=== PATIENT | male | born 1955 | race Caucasian/White ===

== ENCOUNTER 2018-04-06 07:11 | Inpatient (IN) ==
[2018-04-06] MEDS ORDERED: 0.9 % SODIUM CHLORIDE 1,000 ML IV ONE ×2 (07:19→09:26)
--- NOTE | 2018-04-06 08:04 | Emergency Department Note ---
Weakness HPI - General Chief complaint: Weakness Stated complaint: fever Time Seen by Provider: 04/06/18 08:01 Source: patient Mode of arrival: EMS Limitations: no limitations - History of Present Illness HPI Narrative: 62 year old male with history of CKD, COPD, CHF, and stage III CKD, living at intermediate brought in by caregiver with progressively worsening delerium, with visual hallucinations, previously able to speak in complete sentences and only mildly confused, redirectable, now with episodes of only able to speak yes/no responses. In ER today he is pleasant, alert, no oriented, complaining of dog on his lap. He endorses subjective fevers. Has had reported urinary incontinence and constipation with encopresis event yesterday. No other symptoms reportable. - Related Data Home Medications Medication Instructions Recorded Confirmed benztropine 0.5 mg tablet 0.5 mg PO BID 12/13/16 04/04/18 clonazepam 1 mg tablet See Rx Instructions .ROUTE 01/17/17 04/04/18 .COMPLEX tab clobetasol 0.05 % topical ointment 1 applic TOPICAL BID g 03/17/17 04/04/18 ciclopirox 0.77 % topical gel 1 applic TOPICAL BID 05/17/17 04/04/18 colloidal oatmeal 1 % topical cream % TOPICAL 05/17/17 04/04/18 desonide 0.05 % topical cream 1 applic TOPICAL BID 05/17/17 04/04/18 divalproex ER 500 mg 1,000 mg PO QDAY 05/17/17 04/04/18 tablet,extended release 24 hr amoxicillin 500 mg capsule 2 g PO .COMPLEX cap 10/23/17 04/04/18 topiramate 50 mg tablet See Rx Instructions .ROUTE .COMPLEX 10/23/17 04/04/18 venlafaxine ER 150 mg 150 mg PO QDAY cap 10/23/17 04/04/18 capsule,extended release 24 hr hydrocodone 5 mg-acetaminophen 325 1 tab PO Q6H PRN 04/04/18 04/04/18 mg tablet Previous Rx's Medication Instructions Recorded albuterol sulfate HFA 90 See Rx Instructions INHALATION 06/02/16 mcg/actuation aerosol inhaler .Q4-6H PRN #18 g Compression stockings (Knee high, #1 each 09/15/16 15-20 mmHg) Two-wheeled walker #1 each 12/27/16 olanzapine 7.5 mg tablet 7.5 mg PO QDAY #1 tab 03/17/17 blood sugar diagnostic strips See Dose Instructions .ROUTE 04/04/17 .MEDSUPPLY #100 each zinc oxide 13 % topical cream 1 applic TOPICAL BID-QID PRN #113 g 04/11/17 magnesium hydroxide 400 mg/5 mL 30 ml PO QDAY PRN #900 ml 05/30/17 oral suspension fluticasone 50 mcg/actuation nasal 2 spray INTRANASAL QDAY #16 g 08/01/17 spray,suspension cyanocobalamin (vit B-12) 500 mcg 500 mcg PO BID #60 tab 08/22/17 tablet carbidopa 25 mg-levodopa 100 mg 1 tab PO TID #1 tab 08/23/17 tablet acetaminophen ER 650 mg 650 mg PO Q8H PRN #90 tab 10/03/17 tablet,extended release sennosides 8.6 mg tablet 8.6 mg PO QDAY PRN #30 tab 10/11/17 budesonide-formoterol HFA 80 2 inh INHALATION BID #10.2 g 01/18/18 mcg-4.5 mcg/actuation aerosol inhaler diclofenac 1 % topical gel 4 g TOPICAL BID #100 g 01/18/18 loperamide 2 mg capsule 2 mg PO Q2-4H PRN #90 cap 01/18/18 neomycin-bacitracn Zn-polymyx 3.5 1 applic TOPICAL TID PRN #15 g 01/18/18 mg-400 unit-5,000 unit/gram top oint starch (thickening) oral powder 1 each PO .with meals #227 g 01/18/18 fexofenadine 60 mg tablet 60 mg PO QDAY #90 tab 01/26/18 sitagliptin 25 mg tablet 25 mg PO QDAY #30 tab 01/26/18 ferrous sulfate 325 mg (65 mg 325 mg PO QDAY #30 tab 03/01/18 iron) tablet lisinopril 2.5 mg tablet 2.5 mg PO QDAY #30 tab 03/01/18 simvastatin 20 mg tablet 20 mg PO HS #30 tab 03/01/18 trazodone 50 mg tablet 50 mg PO QHS #30 tab 03/01/18 cholecalciferol (vitamin D3) 1,000 1,000 unit PO QDAY #30 tab 03/16/18 unit tablet finasteride 5 mg tablet 5 mg PO QDAY #30 tab 03/16/18 furosemide 40 mg tablet 20 mg PO QDAY #15 tab 03/16/18 levothyroxine 100 mcg tablet 100 mcg PO QDAY #30 tab 03/16/18 omega-3 fatty acids 500 mg capsule 1,000 mg PO QDAY #60 cap 03/16/18 potassium chloride ER 10 mEq 10 meq PO QDAY #30 tab 03/16/18 tablet,extended release(part/cryst) ranitidine 150 mg tablet 150 mg PO BID #60 tab 03/16/18 ipratropium 20 mcg-albuterol 100 1 inh INHALATION QID #4 g 03/21/18 mcg/actuation mist for inhalation metoprolol tartrate 25 mg tablet 12.5 mg PO BID #60 tab 03/21/18 warfarin 5 mg tablet 7.5 mg PO .6XW #200 tab 03/23/18 Allergies Allergy/AdvReac Type Severity Reaction Status Date / Time No Known Drug Allergies Allergy Verified 04/04/18 14:44 Past Medical History - Past Medical History Medical history: Reports: asthma, CHF, COPD, coronary artery disease, DM, GERD, hyperlipidemia, hypertension, renal disease, thyroid disease, valvular heart disease, other Psychiatric history: Reports: depression, schizophrenia Surgical history ED: Reports: angioplasty/stent, coronary bypass (CABG), heart valve replacement, herniorrhaphy, orthopedic, other, pacemaker/AICD, other - Social History smoking status: Former smoker Alcohol use: Reports: None Drug use: Reports: none Physical Exam Limitations: no limitations Course Vital Signs Temperature 99.3 F H 04/06/18 07:12 Pulse Rate 89 04/06/18 07:12 Respiratory Rate 18 04/06/18 07:12 Blood Pressure 104/47 04/06/18 07:12 Pulse Oximetry (%) 96 04/06/18 07:12 Temperature 99.3 F H 04/06/18 07:12 Pulse Rate 69 04/06/18 08:30 Respiratory Rate 21 04/06/18 08:30 Blood Pressure 105/63 04/06/18 08:17 Pulse Oximetry (%) 97 04/06/18 08:30 Weakness - MDM Narrative Medical decision making narrative: Patient meeting SIRS criteria with leukocytosis, elevated venous lactic acid of 3.2 with WBC 11.8 with large leukocyte esterase. Blood cultures pending. Head CT w/o contrast negative, XR chest negative and Abdominal XR demonstrating moderate amounts of stool. Patient given 1g Rocephin IV, admitted to hospital for urosepsis. Discussed case with Dr. Alexander at 9:20am, agreed to admission. - Lab Data Lab results reviewed: Yes I reviewed the patient's lab results. Result diagrams: 04/06/18 07:24 04/06/18 07:24 Lab Results 04/06/18 04/06/18 04/06/18 Range/Units 07:24 07:24 07:24 WBC 11.7 H (4.5-11.0) K/mcL RBC 3.89 L (4.50-5.90) M/mcL Hgb 13.1 L (13.5-16.5) g/dL Hct 39.8 L (41.0-55.0) % MCV 102.1 H (80.0-100.0) fL MCH 33.5 (26.0-34.0) pg MCHC 32.8 (31.0-36.0) g/dL RDW 15.0 H (11.5-14.5) % Plt Count 391 (140-440) K/mcL MPV 7.7 (7.4-10.4) fL Gran % 84.1 H (38.0-78.0) % Lymph % (Auto) 6.7 L (15.5-49.0) % [place] % (Auto) 8.5 (1.0-12.0) % Eos % (Auto) 0.7 (0.0-7.0) % Baso % (Auto) 0 (0.0-2.0) % Gran # 9.8 H (1.8-8.0) K/mcL Lymph # (Auto) 0.8 L (1.5-4.8) K/mcL [place] # (Auto) 1.0 H (0.1-0.9) K/mcL Eos # (Auto) 0.1 (0.0-0.7) K/mcL Baso # (Auto) 0 (0.0-0.3) K/mcL VBG Lactic Acid 3.2 H (0.5-2.0) mmol/L Sodium 139 (133-145) mmol/L Potassium 4.2 (3.3-5.1) mmol/L Chloride 103 (96-108) mmol/L Carbon Dioxide 18 L (22-30) mmol/L Anion Gap 18.0 H (8-16) BUN 27 H (8-23) mg/dl Creatinine 1.5 H (0.7-1.2) mg/dl GFR Calculation 50 Glucose 113 H (70-105) mg/dL Calcium 9.3 (8.6-10.4) mg/dl Total Bilirubin 0.2 (0.0-1.0) mg/dL AST 11 (0-37) U/l ALT 9 (0-40) U/l Alkaline Phosphatase 59 (39-117) U/L Total Protein 8.0 (5.9-8.4) gm/dL Albumin 3.5 (3.2-5.2) gm/dL Globulin 4.5 H (2.2-3.7) gm/dL Albumin/Globulin Ratio 0.8 L (1.0-2.3) Urine Color Urine Appearance Urine pH (5.0-9.0) Ur Specific [place] (1.000-1.035) Urine Protein (NEG) mg/dL Urine Glucose (UA) (NEG) mg/dL Urine Ketones (NEG) mg/dL Urine Occult Blood (<0.03) mg/dL Urine Nitrate (NEG) Urine Bilirubin (NEG) mg/dL Urine Urobilinogen (NEG) mg/dL Ur Leukocyte Esterase (NEG) /uL Urine RBC (0-1) /hpf Urine WBC (0-4) /hpf Ur Squamous Epith Cells (0-4) /hpf Urine Bacteria (0) /hpf Hyaline Casts (0-2) /lpf Urine Mucus (0) /hpf Ur Culture Indicated? 04/06/18 Range/Units 07:25 WBC (4.5-11.0) K/mcL RBC (4.50-5.90) M/mcL Hgb (13.5-16.5) g/dL Hct (41.0-55.0) % MCV (80.0-100.0) fL MCH (26.0-34.0) pg MCHC (31.0-36.0) g/dL RDW (11.5-14.5) % Plt Count (140-440) K/mcL MPV (7.4-10.4) fL Gran % (38.0-78.0) % Lymph % (Auto) (15.5-49.0) % [place] % (Auto) (1.0-12.0) % Eos % (Auto) (0.0-7.0) % Baso % (Auto) (0.0-2.0) % Gran # (1.8-8.0) K/mcL Lymph # (Auto) (1.5-4.8) K/mcL [place] # (Auto) (0.1-0.9) K/mcL Eos # (Auto) (0.0-0.7) K/mcL Baso # (Auto) (0.0-0.3) K/mcL VBG Lactic Acid (0.5-2.0) mmol/L Sodium (133-145) mmol/L Potassium (3.3-5.1) mmol/L Chloride (96-108) mmol/L Carbon Dioxide (22-30) mmol/L Anion Gap (8-16) BUN (8-23) mg/dl Creatinine (0.7-1.2) mg/dl GFR Calculation Glucose (70-105) mg/dL Calcium (8.6-10.4) mg/dl Total Bilirubin (0.0-1.0) mg/dL AST (0-37) U/l ALT (0-40) U/l Alkaline Phosphatase (39-117) U/L Total Protein (5.9-8.4) gm/dL Albumin (3.2-5.2) gm/dL Globulin (2.2-3.7) gm/dL Albumin/Globulin Ratio (1.0-2.3) Urine Color Yellow Urine Appearance Hazy Urine pH 6.0 (5.0-9.0) Ur Specific [place] 1.019 (1.000-1.035) Urine Protein >=500 A (NEG) mg/dL Urine Glucose (UA) Negative (NEG) mg/dL Urine Ketones 5/tr A (NEG) mg/dL Urine Occult Blood Neg (<0.03) mg/dL Urine Nitrate Neg (NEG) Urine Bilirubin Neg (NEG) mg/dL Urine Urobilinogen 2.0 A (NEG) mg/dL Ur Leukocyte Esterase Neg (NEG) /uL Urine RBC 4 H (0-1) /hpf Urine WBC 12 H (0-4) /hpf Ur Squamous Epith Cells < 1 (0-4) /hpf Urine Bacteria 0 (0) /hpf Hyaline Casts 15 H (0-2) /lpf Urine Mucus Mod (0) /hpf Ur Culture Indicated? Yes - Radiology Data Radiology results reviewed: Yes I reviewed the patient's radiology results. Disposition Pt seen by SPORTS INFORMATION DIRECTOR/PA only: No Clinical Impression: Sepsis secondary to UTI, CKD (chronic kidney disease), stage III, Parkinson disease Disposition: Xfer As Inpt ([facility]) Condition: Serious Referrals: Faustino Khoury MD [Primary Care Provider] -
[2018-04-06 08:08] LABS: Basophils # (Auto) 0 K/mcL (0.0-0.3); Basophils % (Auto) 0 % (0.0-2.0); Eosinophils # (Auto) 0.1 K/mcL (0.0-0.7); Eosinophils % (Auto) 0.7 % (0.0-7.0); Granulocytes % (Auto) 84.1 % (38.0-78.0); Lymphocytes # (Auto) 0.8 K/mcL (1.5-4.8); Lymphocytes % (Auto) 6.7 % (15.5-49.0); Mean Cell Volume 102.1 fL (80.0-100.0); Mean Corpuscular HGB Conc 32.8 g/dL (31.0-36.0); Monocytes % (Auto) 8.5 % (1.0-12.0); Platelet Count 391 K/mcL (140-440); RBC 3.89 M/mcL (4.50-5.90)
--- NOTE | 2018-04-06 08:25 | XRay Report ---
HISTORY: Fever and confusion FINDINGS: the lungs are clear and well expanded. The heart size is normal. Sternal wires are present and there is a dual-chamber pacemaker. No pleural effusion or congestive heart failure present. There has been no significant change since 09/06/2016 and 03/23/2018. IMPRESSION: No acute abnormality Interpreted and Authenticated by: Arthur Bojorquez 04/06/18
[2018-04-06 08:26] LABS: ALT/SGPT 9 U/l (0-40); Albumin 3.5 gm/dL (3.2-5.2); Albumin/Globulin Ratio 0.8 (1.0-2.3); Alkaline Phosphatase 59 U/L (39-117); Blood Urea Nitrogen 27 mg/dl (8-23)
[2018-04-06 08:30] LABS: Appearance,Urine HAZY; Bacteria,Urine 0 /hpf (0); Bilirubin,Urine NEG (NEG); Color,Urine YELLOW; Glucose,Urine (UA) NEGATIVE (NEG); Leukocyte Esterase,Urine NEG /uL (NEG); Mucus,Urine MOD /hpf (0); Protein,Urine >=500 mg/dL (NEG); Specific Gravity,Urine 1.019 (1.000-1.035); Urine Blood NEG mg/dL (<0.03); Urine Hyaline Cast 15 /lpf (0-2); Urine RBC 4 /hpf (0-1); Urine Squamous Epithelial Cell < 1 /hpf (0-4); Urine WBC 12 /hpf (0-4)
--- NOTE | 2018-04-06 08:36 | XRay Report ---
HISTORY: Constipation and fever FINDINGS: There is a single loop of mildly dilated jejunum in the left upper quadrant which measures up to 3.5 cm in diameter. Normal amount stool seen throughout the colon. There is no evidence of bowel obstruction. No soft tissue mass or abnormal calcification are seen. There is mild arthritis in the lumbar spine. IMPRESSION: nonspecific small bowel pattern in the left upper quadrant and no evidence of bowel obstruction Interpreted and Authenticated by: Arthur Bojorquez 04/06/18
[2018-04-06] MEDS ORDERED: cefTRIAXone 1 GM VIAL IV ONE (08:54)
--- NOTE | 2018-04-06 09:01 | Cat Scan Report ---
History: Visual hallucinations and fever TECHNIQUE: The brain was imaged without contrast at 2.5 mm intervals. The radiation exposure was limited using dose reduction technology. FINDINGS: There is no evidence of infarct, hemorrhage, edema, mass effect or developmental malformation. There is mild atrophy, most apparent around the right sylvian fissure. The ventricles are prominent but not dilated. No abnormal extra-axial fluid collection is present. No abnormality is seen along the visual pathways. Comparison with the prior exam from 06/01/16 shows no significant change. IMPRESSION: Normal exam Dr. Glez was called with results Interpreted and Authenticated by: Arthur Bojorquez 04/06/18
[2018-04-06 09:21] LABS: Amphetamine Screen,Urine NONE DETECTED (NONDETECTED); Benzodiazepines Screen,Urine NONE DETECTED (NONDETECTED); Cocaine Screen,Urine NONE DETECTED (NONDETECTED); Opiate Screen,Urine NONE DETECTED (NONDETECTED); Oxycodone, Urine Screen NONE DETECTED (NONDETECTED)
[2018-04-06] MEDS ORDERED: ACETAMINOPHEN 325 MG TABLET PO PRN ×2 (13:14→13:57)
[2018-04-06] MEDS ORDERED: PROCHLORPERAZINE 10 MG/2 ML VIAL IV PRN ×2 (13:37→13:57)
[2018-04-06] MEDS ORDERED: ONDANSETRON 4 MG/2 ML VIAL IV PRN ×2 (13:37→13:57)
[2018-04-06] MEDS ORDERED: DEXTROSE 50% 50 ML VIAL IV PRN ×2 (13:37→13:57)
[2018-04-06] MEDS ORDERED: HYDROcodone/APAP 5/325MG TABLET PO PRN (13:37)
[2018-04-06] MEDS ORDERED: DEXTROSE 31 GM ORAL.SUSP PO PRN ×2 (13:37→13:57)
[2018-04-06] MEDS ORDERED: BACITRACIN TOPICAL PRN ×2 (13:43→13:57)
[2018-04-06] MEDS ORDERED: DICLOFENAC SODIUM 4 GM Topical PRN ×2 (13:43→13:57)
[2018-04-06] MEDS ORDERED: MAGNESIUM HYDROXIDE 30 ML ORAL.SUSP PO PRN ×2 (13:43→13:57)
[2018-04-06] MEDS ORDERED: DESONIDE TOPICAL PRN ×2 (13:43→13:57)
[2018-04-06] MEDS ORDERED: NEOMYCIN TOPICAL PRN ×2 (13:43→13:57)
[2018-04-06] MEDS ORDERED: NON FORMULARY MEDICATION 1 DOSE MISCELL (Acetaminophen [Acetaminophen Er] 650 MG) PO PRN ×2 (13:43→13:57)
[2018-04-06] MEDS ORDERED: LOPERAMIDE 2 MG CAPSULE PO PRN ×2 (13:43→13:57)
[2018-04-06] MEDS ORDERED: [UNRECOGNIZED DRUG - OTHER] TOPICAL PRN ×2 (13:43→13:57)
[2018-04-06] MEDS ORDERED: ALBUTEROL SULFATE Inhalation PRN (13:43)
[2018-04-06] MEDS ORDERED: SENNOSIDES 1 TABLET PO PRN ×2 (13:43→13:57)
[2018-04-06] MEDS ORDERED: cefTRIAXone 1 GM in DEXTROSE 5% IN WATER 50 ML IV SCH (13:45)
[2018-04-06] MEDS ORDERED: ALBUTEROL SULFATE 1 PUFF INHALER INH PRN (13:57)
--- NOTE | 2018-04-06 13:58 | Internal Med History&Physical ---
Medical - H&P: [facility] Patient information: Note initiated : 04/06/18 at 1:53 pm Service Date, if different from initiated Date: [] Patient: Bryce Yip 62 y/o M admitted on 04/06/18 for Fever. Chief Complaint: [] History of present illness: Mr. Yip is a 62 year old M presented to ED for weakness decreased oral intake past couple weeks some confusion. History is obtained from charts and lavatory attendant as patient given underlying developmental delay in acute on chronic confusion is unable to provide history. Sounds like patient who sleeps in his chair and was found to have a bowel movement in his chair by the lavatory attendant this morning the patient was getting up out of his chair for the lavatory attendant to clean him up when patient fell to the ground the lavatory attendant called 911. Also reports of visual hallucination which she has had in the past just seems to be a little worse lately. A lavatory attendant says he has had eating or drinking very much lately. He was seen at in the ER [facility] and private primary care provider for a inguinal hernia and he supposed to follow-up with surgery. No reported fevers. In the ED he was found to have a low normal blood pressures with an elevated lactate and concern for UTI thus was started on antibiotics IV fluids and admitted. Per the lavatory attendant patient has a limited conversation ability, he is on at this stage of diet for swallowing precautions but patient does not adhere to it, he is also supposed to be on 2 L of oxygen at night but does not abide by that as well. Review of Systems: Doubt reliability given his underlying developmental delay, however, denies headache/fever/chills/nausea/vomiting/chest or abdominal pain/cough/dyspnea/diarrhea. Otherwise see above. Medical - H&P: [facility] Medical history: Medical History (Last Updated 03/23/18 @ 14:51 by Lena Murillo CMA) Abrasion (Acute) COPD (chronic obstructive pulmonary disease) (Acute) Cellulitis of left lower leg (Acute) Cellulitis of left foot (Acute) Pedal edema (Acute) Bilateral lower leg cellulitis (Acute) Suicidal ideation (Acute) Atypical chest pain (Acute) Venous stasis dermatitis (Acute) Stasis dermatitis of right lower extremity due to peripheral venous hypertension (Acute) Acute exacerbation of chronic obstructive airways disease (Acute) Dehydration (Acute) Leg wound, right (Acute) COPD exacerbation (Acute) Pleurisy (Acute) Internal hemorrhoids (Acute) Yeast infection of the skin (Acute) Closed head injury (Acute) Bronchitis (Acute) Evaluation by medical service required (Acute) Volume depletion, extrarenal loss (Acute) Acute kidney injury superimposed on chronic kidney disease (Acute) Hypoglycemia (Acute) Hyperkalemia (Chronic) Secondary hyperparathyroidism of renal origin (Chronic) Edema (Chronic) Hypertensive renal disease (Chronic) CKD (chronic kidney disease), stage III (Chronic) Suicidal ideation (Chronic) Foot contusion (Chronic) Ventricular hypertrophy (Chronic) Snoring (Chronic 05/30/14) Schizophrenia (Chronic) Obstructive chronic bronchitis with acute bronchitis (Chronic 04/17/14) Melena (Chronic 06/18/14) [facility] use of drug (Chronic) Insomnia (Chronic 05/30/14) Hypothyroidism (acquired) (Chronic) Hypertension, essential (Chronic) Hyperlipidemia (Chronic) Creatinine elevation (Chronic 05/30/14) Edema leg (Chronic) Edema, peripheral (Chronic) Diverticulitis of colon (Chronic) Development delay (Chronic) Depression (Chronic) History of colonic polyps (Chronic) Chest pain (Chronic) Cellulitis and abscess of leg, except foot (Chronic 04/17/14) Atrioventricular block (Chronic) Asthma (Chronic) ASHD (arteriosclerotic heart disease) (Chronic) Aortic stenosis due to bicuspid aortic valve (Chronic) Aortic regurgitation (Chronic) Ankle pain, left (Chronic 04/24/14) Iron deficiency anemia (Chronic 07/21/14) Anemia (Chronic 06/18/14) Acid reflux (Chronic) Cellulitis (Inactive) Cellulitis (Inactive) Cellulitis (Inactive) Cellulitis (Inactive) Cellulitis (Inactive) Type 2 diabetes mellitus (Inactive) Past Surgical History (Last Reviewed 10/23/17 @ 09:50 by Claudia Washington MD) History of bilateral tympanoplasty (Chronic) History of pacemaker (Chronic) History of hernia surgery (Chronic) Status post right foot surgery (Chronic) Status post left foot surgery (Chronic) History of eye surgery (Chronic) History of cardiac catheterization (Chronic) History of aortic valve replacement (Chronic) History of colonoscopy (Chronic 02/23/12) Family History (Last Reviewed 10/23/17 @ 09:50 by Claudia Washington MD) Unknown Cardiovascular disease Essential hypertension Father Alcohol abuse Family history of hepatic cirrhosis Cerebrovascular accident Sister Rheumatoid arthritis Malignant neoplasm of breast Diabetes mellitus Brother Family history of type C viral hepatitis Hyperlipidemia Acute myocardial infarction Mother Malignant neoplasm of lung Social History (Last Updated 04/04/18 @ 15:47 by Faustino Khoury MD) Patient resides in a small senior care with 24-hour caretakers No smoking, no alcohol, Medical - H&P: Meds Home Medications Medication Instructions Recorded Confirmed Type benztropine 0.5 mg tablet 0.5 mg PO BID 12/13/16 04/06/18 History clonazepam 1 mg tablet 0.5 mg PO BID@0800,2000 tab 01/17/17 04/06/18 History clobetasol 0.05 % topical ointment 1 applic TOPICAL BIDP PRN g 03/17/17 04/06/18 History zinc oxide 13 % topical cream 1 applic TOPICAL BID-QID PRN #113 g 04/11/17 04/06/18 Rx ciclopirox 0.77 % topical gel 1 applic TOPICAL BID 05/17/17 04/06/18 History desonide 0.05 % topical cream 1 applic TOPICAL BIDP PRN 05/17/17 04/06/18 History divalproex ER 500 mg 1,000 mg PO DAILY@1600 05/17/17 04/06/18 History tablet,extended release 24 hr magnesium hydroxide 400 mg/5 mL 30 ml PO QDAY PRN #900 ml 05/30/17 04/06/18 Rx oral suspension acetaminophen ER 650 mg 650 mg PO Q8H PRN #90 tab 10/03/17 04/06/18 Rx tablet,extended release topiramate 50 mg tablet 75 mg PO BID@0800,1700 10/23/17 04/06/18 History venlafaxine ER 150 mg 150 mg PO QDAY cap 10/23/17 04/06/18 History capsule,extended release 24 hr budesonide-formoterol HFA 80 2 inh INHALATION BID #10.2 g 01/18/18 04/06/18 Rx mcg-4.5 mcg/actuation aerosol inhaler loperamide 2 mg capsule 2 mg PO Q2-4H PRN #90 cap 01/18/18 04/06/18 Rx neomycin-bacitracn Zn-polymyx 3.5 1 applic TOPICAL TID PRN #15 g 01/18/18 04/06/18 Rx mg-400 unit-5,000 unit/gram top oint fexofenadine 60 mg tablet 60 mg PO QDAY #90 tab 01/26/18 04/06/18 Rx lisinopril 2.5 mg tablet 2.5 mg PO QDAY #30 tab 03/01/18 04/06/18 Rx simvastatin 20 mg tablet 20 mg PO HS #30 tab 03/01/18 04/06/18 Rx trazodone 50 mg tablet 50 mg PO QHS #30 tab 03/01/18 04/06/18 Rx cholecalciferol (vitamin D3) 1,000 1,000 unit PO QDAY #30 tab 03/16/18 04/06/18 Rx unit tablet finasteride 5 mg tablet 5 mg PO QDAY #30 tab 03/16/18 04/06/18 Rx ranitidine 150 mg tablet 150 mg PO BID #60 tab 03/16/18 04/06/18 Rx ipratropium 20 mcg-albuterol 100 1 inh INHALATION QID #4 g 03/21/18 04/06/18 Rx mcg/actuation mist for inhalation Albuterol Sulfate [Proventil Hfa] 2 puff INHALATION Q4-6HP PRN 04/06/18 04/06/18 History Carbidopa/Levodopa [Sinemet 25-100 2 tab PO TID@0800,1200,1700 04/06/18 04/06/18 History mg Tablet] Cyanocobalamin (Vitamin B-12) 500 mcg PO BID@0800,1700 04/06/18 04/06/18 History [Vitamin B-12] Diclofenac Sodium [Voltaren] 4 g TOPICAL BIDP PRN 04/06/18 04/06/18 History Ferrous Sulfate 325 mg PO QPMCC 04/06/18 04/06/18 History Fish Oil 1,000 mg PO DAILY 04/06/18 04/06/18 History Fluticasone Propionate [Flonase] 2 spray INTRANASAL DAILY@1700 04/06/18 04/06/18 History Furosemide [Lasix] 20 mg PO DAILY 04/06/18 04/06/18 History Levothyroxine Sodium [Synthroid] 100 mcg PO QAMAC 04/06/18 04/06/18 History Metoprolol Tartrate [Lopressor] 12.5 mg PO BID@0800,1700 04/06/18 04/06/18 History OLANZapine [Zyprexa] 7.5 mg PO DAILY@1700 04/06/18 04/06/18 History Potassium Chloride [Klor-Con M10] 10 meq PO QAMCC 04/06/18 04/06/18 History Sennosides 8.6 mg PO DAILYP PRN 04/06/18 04/06/18 History Warfarin [Coumadin] 7.5 mg PO DAILY@1700 04/06/18 04/06/18 History sitaGLIPtin PHOSPHATE [Januvia] 25 mg PO DAILY 04/06/18 04/06/18 History Allergies Allergy/AdvReac Type Severity Reaction Status Date / Time No Known Drug Allergies Allergy Verified 04/04/18 14:44 Medical - H&P: Exam - Constitutional Vitals: Temp Pulse Resp BP Pulse Ox 98 F 71 22 110/54 95 04/06/18 11:46 04/06/18 10:35 04/06/18 11:46 04/06/18 11:46 04/06/18 11:46 Exam: General: Alert, Awake, No acute Distress, obese Eyes/N/T: EOMI, PEERL, DMM Head/Neck: neck supple, normocephalic atraumatic CV: RRR, No murmurs, normal s1/s2 Pulm: Clear b/l, no wheezing/rhonchi/rales Abd: soft, nontender, +BS x4 Ext: no clubbing/cyanosis, 1+ b/l LE edema Neuro: Alert, moves all extremities, CN 2-12 grossly intact, symmetrical strength b/l upper/lower but decreased bilaterally lower, sensations intact b/l upper/lower Skin: warm/dry Medical - H&P: Reslt - Labs CBC & Chem 7: 04/06/18 07:24 04/06/18 07:24 Labs: Short CBC 04/06/18 Range/Units 07:24 WBC 11.7 H (4.5-11.0) K/mcL Hgb 13.1 L (13.5-16.5) g/dL Hct 39.8 L (41.0-55.0) % Plt Count 391 (140-440) K/mcL BMP 04/06/18 07:24 Sodium 139 Potassium 4.2 Chloride 103 Carbon Dioxide 18 L BUN 27 H Creatinine 1.5 H Glucose 113 H Calcium 9.3 Liver Function 04/06/18 Range/Units 07:24 Total Bilirubin 0.2 (0.0-1.0) mg/dL AST 11 (0-37) U/l ALT 9 (0-40) U/l Alkaline Phosphatase 59 (39-117) U/L Albumin 3.5 (3.2-5.2) gm/dL Urine 04/06/18 Range/Units 07:25 Urine Color Yellow Urine Appearance Hazy Urine pH 6.0 (5.0-9.0) Ur Specific [place] 1.019 (1.000-1.035) Urine Protein >=500 A (NEG) mg/dL Urine Glucose (UA) Negative (NEG) mg/dL Medical - H&P: A/P - Narrative A/P Narrative: A: *AMS, visual hallucinations, acute on chronic: -started improving in ED after IVF's *Volume depletion: *?UTI: *TONY on CKD III: *Generalized weakness/deconditioning/debility: *Schizophrenia: *Developmental Delay: *Depression/Anxiety: *Parkinson's *CAD/CABG *AVR: on warfarin *COPD(supposed to be on 2L@night but patient noncompliant): *DM *HTN *Hypothyroid: tsh wnl *GERD P: -IVF -Abx, pending BC/UC -supp O2 at night. -cont parkinson's meds -cont cardiac meds -ST eval -pt/ot -CM for placement -ppx: warfarin per pharm/pepcid Medical - H&P: Qual - VTE Deep Vein Thrombosis/Pulmonary Embolism Present on Admission: No
[2018-04-06] MEDS ORDERED: 0.9 % SODIUM CHLORIDE 10 ML SYRINGE IV SCH ×3 (14:00)
[2018-04-06 14:36] LABS: Valproic Acid (Depakene) Test 49.3 ug/mL
[2018-04-06 14:54] LABS: Band Neutrophils % 1 % (0-10); Lymphocytes % 8 % (15-49); Macrocytosis 1+ (NONE SEEN); Monocytes % (Manual) 9 % (1-12); Platelet Estimate NORMAL (NORMAL); RBC Morphology ABNORM (NORMAL); Segmented Neutrophils % 82 % (38-78)
[2018-04-06] MEDS ORDERED: WARFARIN 5 MG TABLET PO ONE (16:00)
[2018-04-06] MEDS ORDERED: DIVALPROEX SODIUM 1000 MG PO SCH (16:00)
[2018-04-06] MEDS: 0.9 % SODIUM CHLORIDE 10 ML SYRINGE IV SCH ×2 (16:06→20:39)
[2018-04-06] MEDS: DIVALPROEX SODIUM 250 MG TAB.ER.24H PO SCH (16:07)
[2018-04-06] MEDS: OLANZapine 5 MG TABLET PO SCH (16:13)
[2018-04-06] MEDS: TOPIRAMATE 25 MG TABLET PO SCH (16:13)
[2018-04-06] MEDS: CARBIDOPA/LEVODOPA 25/100 TABLET PO SCH (16:13)
[2018-04-06] MEDS: METOPROLOL TARTRATE 25 MG TABLET PO SCH (16:14)
[2018-04-06] MEDS: IPRATROPIUM/ALBUTEROL SULFATE 1 PUFF INHALER INH SCH ×2 (16:27→20:37)
[2018-04-06] MEDS: INSULIN LISPRO 1 UNIT/0.01 ML UNIT SQ SCH ×2 (16:28→20:38)
[2018-04-06] MEDS ORDERED: CARBIDOPA/LEVODOPA 25/100 TABLET PO SCH (17:00)
[2018-04-06] MEDS ORDERED: METOPROLOL TARTRATE 25 MG TABLET PO SCH (17:00)
[2018-04-06] MEDS ORDERED: INSULIN LISPRO 1 UNIT/0.01 ML UNIT SQ SCH (17:00)
[2018-04-06] MEDS ORDERED: IPRATROPIUM INHALATION SCH (17:00)
[2018-04-06] MEDS ORDERED: [UNRECOGNIZED DRUG - OTHER] INHALATION SCH (17:00)
[2018-04-06] MEDS ORDERED: WARFARIN 5 MG TABLET PO SCH (17:00)
[2018-04-06] MEDS ORDERED: TOPIRAMATE 50 MG TABLET PO SCH (17:00)
[2018-04-06] MEDS ORDERED: ALBUTEROL SULFATE INHALATION SCH (17:00)
[2018-04-06] MEDS ORDERED: OLANZAPINE 7.5 MG PO SCH (17:00)
[2018-04-06] MEDS ORDERED: clonazePAM 1 MG TABLET PO SCH (20:00)
[2018-04-06] MEDS: DOCUSATE SODIUM 100 MG CAPSULE PO SCH (20:36)
[2018-04-06] MEDS: SIMVASTATIN 20 MG TABLET PO SCH (20:36)
[2018-04-06] MEDS: FAMOTIDINE 20 MG TABLET PO SCH (20:36)
[2018-04-06] MEDS: clonazePAM 0.5 MG TABLET PO SCH (20:37)
[2018-04-06] MEDS: Budesonide/Formoterol Fumarate [Symbicort] 80-4.5 mcg Inhaler INH SCH (20:38)
[2018-04-06] MEDS: BENZTROPINE 1 MG TABLET PO SCH (20:39)
[2018-04-06] MEDS ORDERED: SIMVASTATIN 20 MG TABLET PO SCH (21:00)
[2018-04-06] MEDS ORDERED: FAMOTIDINE 20 MG TABLET PO SCH (21:00)
[2018-04-06] MEDS ORDERED: DOCUSATE SODIUM 100 MG CAPSULE PO SCH (21:00)
[2018-04-06] MEDS ORDERED: CICLOPIROX TOPICAL SCH ×2 (21:00)
[2018-04-06] MEDS ORDERED: BENZTROPINE 1 MG TABLET PO SCH (21:00)
[2018-04-07 05:39] LABS: ALT/SGPT < 5 U/l (0-40); Albumin/Globulin Ratio 0.7 (1.0-2.3); Alkaline Phosphatase 53 U/L (39-117); Bilirubin,Direct < 0.2 mg/dL (0.0-0.3); Blood Urea Nitrogen 16 mg/dl (8-23); Gamma Glutamyl Transpeptidase 30 U/L (8-61); Uric Acid 7.3 mg/dL (2.5-8.0)
[2018-04-07 06:13] LABS: Basophils # (Auto) 0 K/mcL (0.0-0.3); Basophils % (Auto) 0.3 % (0.0-2.0); Eosinophils # (Auto) 0.3 K/mcL (0.0-0.7); Eosinophils % (Auto) 3.2 % (0.0-7.0); Granulocytes % (Auto) 77.5 % (38.0-78.0); Lymphocytes # (Auto) 1.2 K/mcL (1.5-4.8); Lymphocytes % (Auto) 12.5 % (15.5-49.0); Mean Corpuscular HGB Conc 32.9 g/dL (31.0-36.0); Monocytes # (Auto) 0.6 K/mcL (0.1-0.9); Monocytes % (Auto) 6.5 % (1.0-12.0); Platelet Count 381 K/mcL (140-440); RBC 3.44 M/mcL (4.50-5.90); Red Cell Distribution Width 15.1 % (11.5-14.5)
[2018-04-07] MEDS: CARBIDOPA/LEVODOPA 25/100 TABLET PO SCH ×3 (07:06→17:05)
[2018-04-07] MEDS: TOPIRAMATE 25 MG TABLET PO SCH ×2 (07:06→17:04)
[2018-04-07] MEDS: LEVOTHYROXINE 100 MCG TABLET PO SCH (07:07)
[2018-04-07] MEDS: POTASSIUM CHLORIDE 10 MEQ TABLET PO SCH (07:07)
[2018-04-07] MEDS: clonazePAM 0.5 MG TABLET PO SCH ×2 (07:07→20:26)
[2018-04-07] MEDS: INSULIN LISPRO 1 UNIT/0.01 ML UNIT SQ SCH ×4 (07:15→20:28)
[2018-04-07] MEDS ORDERED: LEVOTHYROXINE 100 MCG TABLET PO SCH (07:30)
--- NOTE | 2018-04-07 07:56 | Internal Med Progress Note ---
Medical - PN: Subj Patient information: Note initiated : 04/07/18 at 7:53 am Service Date, if different from initiated Date: [] Patient: Bryce Yip 62 y/o M admitted on 04/06/18 for Fever. Chief Complaint: [] Interval history: Mr. Yip is a 62 year old M presented to ED for weakness decreased oral intake past couple weeks some confusion. History is obtained from charts and environmental health officer as patient given underlying developmental delay in acute on chronic confusion is unable to provide history. Sounds like patient who sleeps in his chair and was found to have a bowel movement in his chair by the environmental health officer this morning the patient was getting up out of his chair for the environmental health officer to clean him up when patient fell to the ground the environmental health officer called 911. Also reports of visual hallucination which she has had in the past just seems to be a little worse lately. A environmental health officer says he has had eating or drinking very much lately. He was seen at in the ER [facility] and private primary care provider for a inguinal hernia and he supposed to follow-up with surgery. No reported fevers. In the ED he was found to have a low normal blood pressures with an elevated lactate and concern for UTI thus was started on antibiotics IV fluids and admitted. Per the environmental health officer patient has a limited conversation ability, he is on at this stage of diet for swallowing precautions but patient does not adhere to it, he is also supposed to be on 2 L of oxygen at night but does not abide by that as well. 04/07 No overnight events. This rested well last night per staff. Does become agitated at times however. No new complaints Review of Systems: denies headache/fever/chills/nausea/vomiting/chest or abdominal pain/cough/dyspnea/diarrhea. Otherwise see above. - Constitutional Vitals: Vital Signs Temp Pulse Resp BP Pulse Ox 98.4 F 69 20 106/52 94 04/07/18 07:43 04/07/18 03:15 04/07/18 07:43 04/07/18 07:43 04/07/18 07:43 Period Temp Pulse Resp BP Sys/Minaya Pulse Ox Last 24 Hr 98 F-99.3 F 60-74 16-29 94-128/45-92 92-100 Intake and Output 04/06/18 04/07/18 04/07/18 21:59 05:59 13:59 Intake Total 750 360 Output Total 501 451 Balance 249 -91 Weight 106.736 kg Intake & Output: Intake & Output 04/06/18 04/07/18 04/07/18 21:59 05:59 13:59 Intake Total 750 360 Output Total 501 451 Balance 249 -91 Weight 106.736 kg Intake: Oral 750 360 Output: Void Amount 500 450 # of times incontinent of urine 1 1 Other: Urine Appearance Clear Clear Urine Color Dark Yellow Bright Yellow Urine Odor Normal Normal # Voids 1 Exam: General: Alert, Awake, No acute Distress, obese Eyes/N/T: EOMI, Head/Neck: neck supple, CV: RRR, No murmurs, Pulm: Clear b/l, no wheezing/rhonchi/rales Abd: soft, nontender, +BS x4 Ext: no clubbing/cyanosis, 1+ b/l LE edema Neuro: Alert, moves all extremities, Skin: warm/dry Medical - PN: Obj Da - Labs CBC & Chem 7: 04/07/18 04:10 04/07/18 04:10 Labs: Abnormal Lab Results 04/07/18 04/07/18 04/06/18 04:10 04:10 14:29 WBC RBC 3.44 L Hgb 11.7 L Hct 35.5 L MCV 103.0 H RDW 15.1 H Gran % Lymph % (Auto) 12.5 L Gran # Lymph # (Auto) 1.2 L [place] # (Auto) Seg Neutrophils % Lymphocytes % RBC Morphology Polychromasia Macrocytosis PT 21.7 H INR 1.9 H VBG Lactic Acid Carbon Dioxide 21 L Anion Gap BUN Creatinine Glucose 140 H Phosphorus 2.0 L Albumin 3.0 L Globulin 4.2 H Albumin/Globulin Ratio 0.7 L Triglycerides 223 H Urine Protein Urine Ketones Urine Urobilinogen Urine RBC Urine WBC Hyaline Casts 04/06/18 04/06/18 04/06/18 07:25 07:24 07:24 WBC RBC Hgb Hct MCV RDW Gran % Lymph % (Auto) Gran # Lymph # (Auto) [place] # (Auto) Seg Neutrophils % 82 H Lymphocytes % 8 L RBC Morphology Abnorm A Polychromasia 1+ A Macrocytosis 1+ A PT INR VBG Lactic Acid 3.2 H Carbon Dioxide Anion Gap BUN Creatinine Glucose Phosphorus Albumin Globulin Albumin/Globulin Ratio Triglycerides Urine Protein >=500 A Urine Ketones 5/tr A Urine Urobilinogen 2.0 A Urine RBC 4 H Urine WBC 12 H Hyaline Casts 15 H 04/06/18 04/06/18 07:24 07:24 WBC 11.7 H RBC 3.89 L Hgb 13.1 L Hct 39.8 L MCV 102.1 H RDW 15.0 H Gran % 84.1 H Lymph % (Auto) 6.7 L Gran # 9.8 H Lymph # (Auto) 0.8 L [place] # (Auto) 1.0 H Seg Neutrophils % Lymphocytes % RBC Morphology Polychromasia Macrocytosis PT INR VBG Lactic Acid Carbon Dioxide 18 L Anion Gap 18.0 H BUN 27 H Creatinine 1.5 H Glucose 113 H Phosphorus Albumin Globulin 4.5 H Albumin/Globulin Ratio 0.8 L Triglycerides Urine Protein Urine Ketones Urine Urobilinogen Urine RBC Urine WBC Hyaline Casts Meds: Medications Acetaminophen (Tylenol) 650 mg PO Q6HP PRN PRN Reason: PAIN/FEVER > 101 Hydrocodone Bitart/Acetaminophen ([place] 5/325mg) 1 tab PO Q4HP PRN PRN Reason: PAIN LEVEL 3-6 Albuterol Sulfate (Ventolin) 2 puff INH Q4-6HP PRN PRN Reason: shortness of breath Albuterol/Ipratropium (Combivent) 1 puff INH QID [facility] Last Admin: 04/06/18 20:37 Dose: Not Given Documented by: Benztropine Mesylate (Cogentin) 0.5 mg PO BID [facility] Last Admin: 04/06/18 20:39 Dose: 0.5 mg Documented by: Carbidopa/Levodopa (Sinemet 25/100) 2 tab PO TID@0800,1200,1700 [facility] Last Admin: 04/07/18 07:06 Dose: 2 tab Documented by: Ceftriaxone Sodium (Rocephin) 1 gm IV Q24H [facility] Clonazepam (Klonopin) 0.5 mg PO BID@0800,2000 [facility] Last Admin: 04/07/18 07:07 Dose: 0.5 mg Documented by: Dextrose (Dextrose 50%) 0 ml IV UD PRN PRN Reason: Hypoglycemia Diagnostic Test (Pha) (Accu-Chek) 1 each FS ACHS [facility] Last Admin: 04/07/18 07:15 Dose: 1 each Documented by: Divalproex Sodium (Depakote Er) 1,000 mg PO DAILY@1600 [facility] Last Admin: 04/06/18 16:07 Dose: 1,000 mg Documented by: Docusate Sodium (Colace) 100 mg PO BID [facility] Last Admin: 04/06/18 20:36 Dose: 100 mg Documented by: Famotidine (Pepcid) 20 mg PO BID [facility] Last Admin: 04/06/18 20:36 Dose: 20 mg Documented by: Finasteride (Proscar) 5 mg PO QDAY [facility] Furosemide (Lasix) 20 mg PO DAILY [facility] Glucose (Insta-Glucose) 15 gm PO PRN PRN PRN Reason: Hypoglycemia Insulin Human Lispro (Humalog) 0 unit SQ [facility]; Protocol Last Admin: 04/07/18 07:15 Dose: Not Given Documented by: Levothyroxine Sodium (Synthroid) 100 mcg PO [facility] Last Admin: 04/07/18 07:07 Dose: 100 mcg Documented by: Lisinopril (Zestril) 2.5 mg PO QDAY [facility] Loperamide HCl (Imodium) 2 mg PO Q2-4HP PRN PRN Reason: Diarrhea Magnesium Hydroxide (Milk Of Magnesia) 30 ml PO QDAY PRN PRN Reason: constipation and heartburn Metoprolol Tartrate (Lopressor) 12.5 mg PO BID@0800,1700 [facility] Last Admin: 04/06/18 16:14 Dose: 12.5 mg Documented by: Olanzapine (Zyprexa) 7.5 mg PO DAILY@1700 [facility] Last Admin: 04/06/18 16:13 Dose: 7.5 mg Documented by: Ondansetron HCl (Zofran) 4 mg IV Q6HP PRN PRN Reason: Nausea And Vomiting Budesonide/Formoterol Fumarate [Symbicort] 80-4.5 Mcg Inhaler 2 dose INH BID [facility] Last Admin: 04/06/18 20:38 Dose: Not Given Documented by: Potassium Chloride (Kdur) 10 meq PO QAMID [facility] Last Admin: 04/07/18 07:07 Dose: 10 meq Documented by: Prochlorperazine (Compazine) 5 mg IV Q4HP PRN PRN Reason: Nausea And Vomiting Senna (Senokot) 1 tab PO DAILYP PRN PRN Reason: constipation Simvastatin (Zocor) 20 mg PO HS [facility] Last Admin: 04/06/18 20:36 Dose: 20 mg Documented by: Sodium Chloride (Saline Flush) 10 ml IV Q8 [facility] Last Admin: 04/06/18 20:39 Dose: 10 ml Documented by: Topiramate (Topamax) 75 mg PO BID@0800,1700 [facility] Last Admin: 04/07/18 07:06 Dose: 75 mg Documented by: Venlafaxine HCl (Effexor Xr) 150 mg PO QDAY [facility] Warfarin Sodium (Coumadin Per Pharmacy) 1 order PO UD [facility] Medical - PN: A/P - Time Spent With Patient Total time spent is greater than 50% in coordination of care (as documented) at patient's floor/unit and/or counseling patient: - Narrative A/P Narrative: A: *AMS, visual hallucinations, acute on chronic: improved -started improving in ED after IVF's *Volume depletion: improved *?UTI: *TONY on CKD III: improved *Generalized weakness/deconditioning/debility: *Schizophrenia: *Developmental Delay: *Depression/Anxiety: *Parkinson's *CAD/CABG *AVR: on warfarin *COPD(supposed to be on 2L@night but patient noncompliant): *DM *HTN *Hypothyroid: tsh wnl *GERD P: - -Abx, pending BC/UC -supp O2 at night. -cont parkinson's meds -cont cardiac meds -ST eval -pt/ot -CM for placement -ppx: warfarin per pharm/pepcid Medical - PN: Qual - VTE Deep Vein Thrombosis/Pulmonary Embolism Present on Admission: No
[2018-04-07] MEDS ORDERED: POTASSIUM CHLORIDE 10 MEQ PO SCH (08:00)
[2018-04-07] MEDS: 0.9 % SODIUM CHLORIDE 10 ML SYRINGE IV SCH ×3 (08:27→20:27)
[2018-04-07] MEDS ORDERED: FINASTERIDE 5 MG TABLET PO SCH (09:00)
[2018-04-07] MEDS ORDERED: FUROSEMIDE 20 MG TABLET PO SCH (09:00)
[2018-04-07] MEDS ORDERED: VENLAFAXINE 150 MG CAP.XL.24H PO SCH (09:00)
[2018-04-07] MEDS ORDERED: LISINOPRIL 2.5 MG TABLET PO SCH (09:00)
[2018-04-07] MEDS ORDERED: ENOXAPARIN 40 MG/0.4 ML SYRINGE SQ SCH ×2 (09:00)
[2018-04-07] MEDS: cefTRIAXone 1 GM VIAL IV SCH (09:03)
[2018-04-07] MEDS: LISINOPRIL 5 MG TABLET PO SCH (09:03)
[2018-04-07] MEDS: BENZTROPINE 1 MG TABLET PO SCH ×2 (09:03→20:26)
[2018-04-07] MEDS: IPRATROPIUM/ALBUTEROL SULFATE 1 PUFF INHALER INH SCH ×4 (09:04→20:28)
[2018-04-07] MEDS: METOPROLOL TARTRATE 25 MG TABLET PO SCH ×2 (09:04→17:07)
[2018-04-07] MEDS: FUROSEMIDE 20 MG TABLET PO SCH (09:04)
[2018-04-07] MEDS: FAMOTIDINE 20 MG TABLET PO SCH ×2 (09:04→20:27)
[2018-04-07] MEDS: DOCUSATE SODIUM 100 MG CAPSULE PO SCH ×2 (09:04→20:26)
[2018-04-07] MEDS: VENLAFAXINE 150 MG CAP.XL.24H PO SCH (09:04)
[2018-04-07] MEDS: Budesonide/Formoterol Fumarate [Symbicort] 80-4.5 mcg Inhaler INH SCH ×2 (09:07→20:28)
[2018-04-07] MEDS: FINASTERIDE 5 MG TABLET PO SCH (09:07)
[2018-04-07] MEDS ORDERED: cefTRIAXone 1 GM in DEXTROSE 5% IN WATER 50 ML IV SCH (13:45)
[2018-04-07] MEDS ORDERED: WARFARIN 7.5 MG TABLET PO ONE (14:00)
[2018-04-07] MEDS: DIVALPROEX SODIUM 250 MG TAB.ER.24H PO SCH (17:02)
[2018-04-07] MEDS: OLANZapine 5 MG TABLET PO SCH (17:03)
[2018-04-07] MEDS: SIMVASTATIN 20 MG TABLET PO SCH (20:26)
[2018-04-08] MEDS: 0.9 % SODIUM CHLORIDE 10 ML SYRINGE IV SCH ×3 (06:03→20:32)
[2018-04-08] MEDS: INSULIN LISPRO 1 UNIT/0.01 ML UNIT SQ SCH ×4 (06:57→20:33)
[2018-04-08] MEDS: TOPIRAMATE 25 MG TABLET PO SCH ×2 (07:32→17:02)
[2018-04-08] MEDS: LISINOPRIL 5 MG TABLET PO SCH (07:33)
[2018-04-08] MEDS: clonazePAM 0.5 MG TABLET PO SCH ×2 (07:33→20:32)
[2018-04-08] MEDS: VENLAFAXINE 150 MG CAP.XL.24H PO SCH (07:33)
[2018-04-08] MEDS: CARBIDOPA/LEVODOPA 25/100 TABLET PO SCH ×3 (07:33→16:58)
[2018-04-08] MEDS: DOCUSATE SODIUM 100 MG CAPSULE PO SCH ×2 (07:34→20:33)
[2018-04-08] MEDS: FINASTERIDE 5 MG TABLET PO SCH (07:34)
[2018-04-08] MEDS: LEVOTHYROXINE 100 MCG TABLET PO SCH (07:34)
[2018-04-08] MEDS: FUROSEMIDE 20 MG TABLET PO SCH (07:34)
[2018-04-08] MEDS: POTASSIUM CHLORIDE 10 MEQ TABLET PO SCH (07:34)
[2018-04-08] MEDS: IPRATROPIUM/ALBUTEROL SULFATE 1 PUFF INHALER INH SCH ×4 (07:35→20:33)
[2018-04-08] MEDS: METOPROLOL TARTRATE 25 MG TABLET PO SCH ×2 (07:36→17:03)
[2018-04-08] MEDS: FAMOTIDINE 20 MG TABLET PO SCH ×2 (07:37→20:32)
[2018-04-08] MEDS: Budesonide/Formoterol Fumarate [Symbicort] 80-4.5 mcg Inhaler INH SCH ×2 (07:37→20:34)
--- NOTE | 2018-04-08 07:56 | Internal Med Progress Note ---
Medical - PN: Subj Patient information: Note initiated : 04/08/18 at 7:54 am Service Date, if different from initiated Date: [] Patient: Bryce Yip a 62 y/o M admitted on 04/06/18 for Fever. Chief Complaint: [] Interval history: Mr. Yip is a 62 year old M presented to ED for weakness decreased oral intake past couple weeks some confusion. History is obtained from charts and vehicle calibration engineer as patient given underlying developmental delay in acute on chronic confusion is unable to provide history. Sounds like patient who sleeps in his chair and was found to have a bowel movement in his chair by the vehicle calibration engineer this morning the patient was getting up out of his chair for the vehicle calibration engineer to clean him up when patient fell to the ground the vehicle calibration engineer called 911. Also reports of visual hallucination which she has had in the past just seems to be a little worse lately. A vehicle calibration engineer says he has had eating or drinking very much lately. He was seen at in the ER [facility] and private primary care provider for a inguinal hernia and he supposed to follow-up with surgery. No reported fevers. In the ED he was found to have a low normal blood pressures with an elevated lactate and concern for UTI thus was started on antibiotics IV fluids and admitted. Per the vehicle calibration engineer patient has a limited conversation ability, he is on at this stage of diet for swallowing precautions but patient does not adhere to it, he is also supposed to be on 2 L of oxygen at night but does not abide by that as well. 04/07 No overnight events. This rested well last night per staff. Does become agitated at times however. No new complaints 04/08 No overnight events. Gets little anxious when the vehicle calibration engineer leaves at night per nursing. Review of Systems: denies headache/fever/chills/nausea/vomiting/chest or abdominal pa in/cough/dyspnea/diarrhea. Otherwise see above. - Constitutional Vitals: Vital Signs Temp Pulse Resp BP Pulse Ox 97.3 F 72 24 H 117/66 93 04/08/18 07:22 04/08/18 04:15 04/08/18 07:22 04/08/18 07:22 04/08/18 07:22 Period Temp Pulse Resp BP Sys/Minaya Pulse Ox Last 24 Hr 97.3 F-98.7 F 68-72 16-24 103-123/62-66 93-99 Intake and Output 04/07/18 04/08/18 04/08/18 21:59 05:59 13:59 Intake Total 480 560 Output Total 1425 576 150 Balance -945 -16 -150 Weight 104.78 kg Intake & Output: Intake & Output 04/07/18 04/08/18 04/08/18 21:59 05:59 13:59 Intake Total 480 560 Output Total 1425 576 150 Balance -945 -16 -150 Weight 104.78 kg Intake: Oral 480 560 Output: Void Amount 1425 575 150 # of times incontinent of urine 0 1 Other: Meal Lunch Percent of Meal Consumed 50% Urine Appearance Clear Clear Clear Urine Color Bright Yellow Pale Bright Yellow Urine Odor Normal # Voids 2 Exam: General: Alert, Awake, No acute Distress, obese Eyes/N/T: EOMI, Head/Neck: neck supple, CV: RRR, 2/6 SM Pulm: Clear b/l, no wheezing/rhonchi/rales Abd: soft, nontender, +BS x4 Ext: no clubbing/cyanosis, trace b/l LE edema Neuro: Alert, moves all extremities, Skin: warm/dry Medical - PN: Obj Da - Labs CBC & Chem 7: 04/07/18 04:10 04/07/18 04:10 Labs: Abnormal Lab Results 04/08/18 04/07/18 04/07/18 04:15 07:23 04:10 WBC RBC Hgb Hct MCV RDW Gran % Lymph % (Auto) Gran # Lymph # (Auto) [place] # (Auto) Seg Neutrophils % Lymphocytes % RBC Morphology Polychromasia Macrocytosis PT 24.4 H 23.1 H INR 2.2 H 2.1 H VBG Lactic Acid Carbon Dioxide 21 L Anion Gap BUN Creatinine Glucose 140 H Phosphorus 2.0 L Albumin 3.0 L Globulin 4.2 H Albumin/Globulin Ratio 0.7 L Triglycerides 223 H Urine Protein Urine Ketones Urine Urobilinogen Urine RBC Urine WBC Hyaline Casts 04/07/18 04/06/18 04/06/18 04:10 14:29 07:25 WBC RBC 3.44 L Hgb 11.7 L Hct 35.5 L MCV 103.0 H RDW 15.1 H Gran % Lymph % (Auto) 12.5 L Gran # Lymph # (Auto) 1.2 L [place] # (Auto) Seg Neutrophils % Lymphocytes % RBC Morphology Polychromasia Macrocytosis PT 21.7 H INR 1.9 H VBG Lactic Acid Carbon Dioxide Anion Gap BUN Creatinine Glucose Phosphorus Albumin Globulin Albumin/Globulin Ratio Triglycerides Urine Protein >=500 A Urine Ketones 5/tr A Urine Urobilinogen 2.0 A Urine RBC 4 H Urine WBC 12 H Hyaline Casts 15 H 04/06/18 04/06/18 04/06/18 07:24 07:24 07:24 WBC RBC Hgb Hct MCV RDW Gran % Lymph % (Auto) Gran # Lymph # (Auto) [place] # (Auto) Seg Neutrophils % 82 H Lymphocytes % 8 L RBC Morphology Abnorm A Polychromasia 1+ A Macrocytosis 1+ A PT INR VBG Lactic Acid 3.2 H Carbon Dioxide 18 L Anion Gap 18.0 H BUN 27 H Creatinine 1.5 H Glucose 113 H Phosphorus Albumin Globulin 4.5 H Albumin/Globulin Ratio 0.8 L Triglycerides Urine Protein Urine Ketones Urine Urobilinogen Urine RBC Urine WBC Hyaline Casts 04/06/18 07:24 WBC 11.7 H RBC 3.89 L Hgb 13.1 L Hct 39.8 L MCV 102.1 H RDW 15.0 H Gran % 84.1 H Lymph % (Auto) 6.7 L Gran # 9.8 H Lymph # (Auto) 0.8 L [place] # (Auto) 1.0 H Seg Neutrophils % Lymphocytes % RBC Morphology Polychromasia Macrocytosis PT INR VBG Lactic Acid Carbon Dioxide Anion Gap BUN Creatinine Glucose Phosphorus Albumin Globulin Albumin/Globulin Ratio Triglycerides Urine Protein Urine Ketones Urine Urobilinogen Urine RBC Urine WBC Hyaline Casts Meds: Medications Acetaminophen (Tylenol) 650 mg PO Q6HP PRN PRN Reason: PAIN/FEVER > 101 Hydrocodone Bitart/Acetaminophen ([place] 5/325mg) 1 tab PO Q4HP PRN PRN Reason: PAIN LEVEL 3-6 Albuterol Sulfate (Ventolin) 2 puff INH Q4-6HP PRN PRN Reason: shortness of breath Albuterol/Ipratropium (Combivent) 1 puff INH QID [facility] Last Admin: 04/08/18 07:35 Dose: Not Given Documented by: Benztropine Mesylate (Cogentin) 0.5 mg PO BID [facility] Last Admin: 04/07/18 20:26 Dose: 0.5 mg Documented by: Carbidopa/Levodopa (Sinemet 25/100) 2 tab PO TID@0800,1200,1700 [facility] Last Admin: 04/08/18 07:33 Dose: 2 tab Documented by: Ceftriaxone Sodium (Rocephin) 1 gm IV Q24H [facility] Last Admin: 04/07/18 09:03 Dose: 1 gm Documented by: Clonazepam (Klonopin) 0.5 mg PO BID@0800,2000 [facility] Last Admin: 04/08/18 07:33 Dose: 0.5 mg Documented by: Dextrose (Dextrose 50%) 0 ml IV UD PRN PRN Reason: Hypoglycemia Diagnostic Test (Pha) (Accu-Chek) 1 each FS [facility] Last Admin: 04/08/18 06:57 Dose: 1 each Documented by: Divalproex Sodium (Depakote Er) 1,000 mg PO DAILY@1600 [facility] Last Admin: 04/07/18 17:02 Dose: 1,000 mg Documented by: Docusate Sodium (Colace) 100 mg PO BID [facility] Last Admin: 04/08/18 07:34 Dose: 100 mg Documented by: Famotidine (Pepcid) 20 mg PO BID [facility] Last Admin: 04/08/18 07:37 Dose: 20 mg Documented by: Finasteride (Proscar) 5 mg PO QDAY [facility] Last Admin: 04/08/18 07:34 Dose: 5 mg Documented by: Furosemide (Lasix) 20 mg PO DAILY [facility] Last Admin: 04/08/18 07:34 Dose: 20 mg Documented by: Glucose (Insta-Glucose) 15 gm PO PRN PRN PRN Reason: Hypoglycemia Insulin Human Lispro (Humalog) 0 unit SQ [facility]; Protocol Last Admin: 04/08/18 06:57 Dose: Not Given Documented by: Levothyroxine Sodium (Synthroid) 100 mcg PO QAMAC [facility] Last Admin: 04/08/18 07:34 Dose: 100 mcg Documented by: Lisinopril (Zestril) 2.5 mg PO QDAY [facility] Last Admin: 04/08/18 07:33 Dose: 2.5 mg Documented by: Loperamide HCl (Imodium) 2 mg PO Q2-4HP PRN PRN Reason: Diarrhea Magnesium Hydroxide (Milk Of Magnesia) 30 ml PO QDAY PRN PRN Reason: constipation and heartburn Metoprolol Tartrate (Lopressor) 12.5 mg PO BID@0800,1700 [facility] Last Admin: 04/08/18 07:36 Dose: Not Given Documented by: Olanzapine (Zyprexa) 7.5 mg PO DAILY@1700 [facility] Last Admin: 04/07/18 17:03 Dose: 7.5 mg Documented by: Ondansetron HCl (Zofran) 4 mg IV Q6HP PRN PRN Reason: Nausea And Vomiting Budesonide/Formoterol Fumarate [Symbicort] 80-4.5 Mcg Inhaler 2 dose INH BID [facility] Last Admin: 04/08/18 07:37 Dose: Not Given Documented by: [facility] ([facility]) [facility] Last Admin: 04/08/18 07:34 Dose: 10 meq Documented by: Prochlorperazine (Compazine) 5 mg IV Q4HP PRN PRN Reason: Nausea And Vomiting Senna (Senokot) 1 tab PO DAILYP PRN PRN Reason: constipation Simvastatin (Zocor) 20 mg PO HS [facility] Last Admin: 04/07/18 20:26 Dose: 20 mg Documented by: Sodium Chloride (Saline Flush) 10 ml IV Q8 [facility] Last Admin: 04/08/18 06:03 Dose: 10 ml Documented by: Topiramate (Topamax) 75 mg PO BID@0800,1700 [facility] Last Admin: 04/08/18 07:32 Dose: 75 mg Documented by: Venlafaxine HCl (Effexor Xr) 150 mg PO QDAY [facility] Last Admin: 04/08/18 07:33 Dose: 150 mg Documented by: Warfarin Sodium (Coumadin Per Pharmacy) 1 order PO [facility] [place] [place] Medical - PN: A/P - Time Spent With Patient Total time spent is greater than 50% in coordination of care (as documented) at patient's floor/unit and/or counseling patient: - Narrative A/P Narrative: A: *AMS, visual hallucinations, acute on chronic: improved. become anxious when vehicle calibration engineer leaves for the evening -started improving in ED after IVF's *Volume depletion: improved *?UTI: UC no growth *TONY on CKD III: improved *Generalized weakness/deconditioning/debility: *Schizophrenia: *Developmental Delay: *Depression/Anxiety: *Parkinson's *CAD/CABG *AVR: on warfarin *COPD(supposed to be on 2L@night but patient noncompliant): *DM *HTN *Hypothyroid: tsh wnl *GERD P: - -Abx, pending BC/UC -supp O2 at night. -cont parkinson's meds -cont cardiac meds -ST eval -pt/ot -CM for placement -ppx: warfarin per pharm/pepcid Medical - PN: Qual - VTE Deep Vein Thrombosis/Pulmonary Embolism Present on Admission: No
[2018-04-08] MEDS: BENZTROPINE 1 MG TABLET PO SCH ×2 (08:23→20:32)
[2018-04-08] MEDS: cefTRIAXone 1 GM VIAL IV SCH (08:23)
[2018-04-08] MEDS: HYDROcodone/APAP 5/325MG TABLET PO PRN (08:23)
--- NOTE | 2018-04-08 10:43 | Discharge Summary ---
Medical - DS: Prov Patient information: Note initiated : 04/08/18 at 10:41 am Service Date, if different from initiated Date: [] Patient: Bryce Yip 62 y/o M admitted on 04/06/18 for Fever. Chief Complaint: [] Date of admission: 04/06/18 10:33 Discharge date: 04/09/18 Primary care physician: Faustino Khoury Consults: 04/06/18 Consult to Physician [CONS] Stat Comment: Consulting Provider: Dogu Alexander Reason For Exam: Physician to Consult Medical - DS: Meds - Discharge Medications Active and Home Medications: Home Medications benztropine 0.5 mg tablet 0.5 mg PO BID 12/13/16 [History Confirmed 04/06/18 Last Taken 01/09/18 07:00] clonazepam 1 mg tablet 0.5 mg PO BID@0800,2000 tab 01/17/17 [History Confirmed 04/06/18 Last Taken 01/09/18 07:00] clobetasol 0.05 % topical ointment 1 applic TOPICAL BIDP PRN g 03/17/17 [History Confirmed 04/06/18 Last Taken 01/08/18] zinc oxide 13 % topical cream 1 applic TOPICAL BID-QID PRN #113 g 04/11/17 [Rx Confirmed 04/06/18 Last Taken 01/08/18] ciclopirox 0.77 % topical gel 1 applic TOPICAL BID 05/17/17 [History Confirmed 04/06/18 Last Taken 01/08/18] desonide 0.05 % topical cream 1 applic TOPICAL BIDP PRN 05/17/17 [History Confirmed 04/06/18 Last Taken 01/08/18] divalproex ER 500 mg tablet,extended release 24 hr 1,000 mg PO DAILY@1600 05/17/17 [History Confirmed 04/06/18 Last Taken 01/09/18 07:00] magnesium hydroxide 400 mg/5 mL oral suspension 30 ml PO QDAY PRN #900 ml 05/30/17 [Rx Confirmed 04/06/18 Last Taken 01/08/18] acetaminophen ER 650 mg tablet,extended release 650 mg PO Q8H PRN #90 tab 10/03/17 [Rx Confirmed 04/06/18 Last Taken Unknown] topiramate 50 mg tablet 75 mg PO BID@0800,1700 10/23/17 [History Confirmed 04/06/18 Last Taken 01/09/18 07:00] venlafaxine ER 150 mg capsule,extended release 24 hr 150 mg PO QDAY cap 10/23/17 [History Confirmed 04/06/18 Last Taken 01/09/18 07:00] budesonide-formoterol HFA 80 mcg-4.5 mcg/actuation aerosol inhaler 2 inh INHALATION BID #10.2 g 01/18/18 [Rx Confirmed 04/06/18 Last Taken Unknown] loperamide 2 mg capsule 2 mg PO Q2-4H PRN #90 cap 01/18/18 [Rx Confirmed 04/06/18 Last Taken Unknown] neomycin-bacitracn Zn-polymyx 3.5 mg-400 unit-5,000 unit/gram top oint 1 applic TOPICAL TID PRN #15 g 01/18/18 [Rx Confirmed 04/06/18 Last Taken Unknown] fexofenadine 60 mg tablet 60 mg PO QDAY #90 tab 01/26/18 [Rx Confirmed 04/06/18 Last Taken Unknown] lisinopril 2.5 mg tablet 2.5 mg PO QDAY #30 tab 03/01/18 [Rx Confirmed 04/06/18 Last Taken Unknown] simvastatin 20 mg tablet 20 mg PO HS #30 tab 03/01/18 [Rx Confirmed 04/06/18 Last Taken Unknown] trazodone 50 mg tablet 50 mg PO QHS #30 tab 03/01/18 [Rx Confirmed 04/06/18 Last Taken Unknown] cholecalciferol (vitamin D3) 1,000 unit tablet 1,000 unit PO QDAY #30 tab 03/16/18 [Rx Confirmed 04/06/18 Last Taken Unknown] finasteride 5 mg tablet 5 mg PO QDAY #30 tab 03/16/18 [Rx Confirmed 04/06/18 Last Taken Unknown] ranitidine 150 mg tablet 150 mg PO BID #60 tab 03/16/18 [Rx Confirmed 04/06/18 Last Taken Unknown] ipratropium 20 mcg-albuterol 100 mcg/actuation mist for inhalation 1 inh INHALATION QID #4 g 03/21/18 [Rx Confirmed 04/06/18 Last Taken Unknown] Albuterol Sulfate [Proventil Hfa] 2 puff INHALATION Q4-6HP PRN 04/06/18 [History Confirmed 04/06/18 Last Taken Unknown] Carbidopa/Levodopa [Sinemet 25-100 mg Tablet] 2 tab PO TID@0800,1200,1700 04/06/18 [History Confirmed 04/06/18 Last Taken Unknown] Cyanocobalamin (Vitamin B-12) [Vitamin B-12] 500 mcg PO BID@0800,1700 04/06/18 [History Confirmed 04/06/18 Last Taken Unknown] Diclofenac Sodium [Voltaren] 4 g TOPICAL BIDP PRN 04/06/18 [History Confirmed 04/06/18 Last Taken Unknown] Ferrous Sulfate 325 mg PO QPMCC 04/06/18 [History Confirmed 04/06/18 Last Taken Unknown] Fish Oil 1,000 mg PO DAILY 04/06/18 [History Confirmed 04/06/18 Last Taken Unknown] Fluticasone Propionate [Flonase] 2 spray INTRANASAL DAILY@1700 04/06/18 [History Confirmed 04/06/18 Last Taken Unknown] Furosemide [Lasix] 20 mg PO DAILY 04/06/18 [History Confirmed 04/06/18 Last Taken Unknown] Levothyroxine Sodium [Synthroid] 100 mcg PO QAMAC 04/06/18 [History Confirmed 04/06/18 Last Taken Unknown] Metoprolol Tartrate [Lopressor] 12.5 mg PO BID@0800,1700 04/06/18 [History Confirmed 04/06/18 Last Taken Unknown] OLANZapine [Zyprexa] 7.5 mg PO DAILY@1700 04/06/18 [History Confirmed 04/06/18 Last Taken Unknown] Potassium Chloride [Klor-Con M10] 10 meq PO QAC 04/06/18 [History Confirmed 04/06/18 Last Taken Unknown] Sennosides 8.6 mg PO DAILYP PRN 04/06/18 [History Confirmed 04/06/18 Last Taken Unknown] Warfarin [Coumadin] 7.5 mg PO DAILY@1700 04/06/18 [History Confirmed 04/06/18 Last Taken Unknown] sitaGLIPtin PHOSPHATE [Januvia] 25 mg PO DAILY 04/06/18 [History Confirmed 04/06/18 Last Taken Unknown] Medical - DS: Hosp Hospital course: Mr. Yip is a 62 year old M Mr. Yip is a 62 year old M presented to ED for weakness decreased oral intake past couple weeks some confusion. History is obtained from charts and game designer as patient given underlying developmental delay in acute on chronic confusion is unable to provide history. Sounds like patient who sleeps in his chair and was found to have a bowel movement in his chair by the game designer this morning the patient was getting up out of his chair for the game designer to clean him up when patient fell to the ground the game designer called 911. Also reports of visual hallucination which she has had in the past just seems to be a little worse lately. A game designer says he has had eating or drinking very much lately. He was seen at in the ER [facility] and private primary care provider for a inguinal hernia and he supposed to follow-up with surgery. No reported fevers. In the ED he was found to have a low normal blood pressures with an elevated lactate and concern for UTI thus was started on antibiotics IV fluids and admitted. Per the game designer patient has a limited conversation ability, he is on at this stage of diet for swallowing precautions but patient does not adhere to it, he is also supposed to be on 2 L of oxygen at night but does not abide by that as well. 04/07 No overnight events. This rested well last night per staff. Does become agitated at times however. No new complaints 04/08 No overnight events. Gets little anxious when the game designer leaves at night per nursing. 04/09 Not very motivated to move around. No complaints. No overnight events. Later in the morning patient started working with PT, and per game designer is back to baseline. will d/c today. Discharge diagnosis: AMS volume depletiona marce schizophrenia developmental delay depression anxi Secondary discharge diagnosis: Depression anxiety Parkinson's CAD COPD diabetes hypertension hypothyroidism GERD - Time Spent with Patient Total time spent providing and/or coordinating discharge services: Greater than 30 minutes Medical - DS: Exam - Constitutional Vitals: Vital Signs Temp Pulse Resp BP Pulse Ox 04/08/18 07:22 97.3 F 24 H 117/66 93 04/08/18 04:15 97.5 F 72 16 119/64 98 04/08/18 00:05 97.7 F 71 16 123/66 99 04/07/18 19:00 98.5 F 68 16 115/66 95 04/07/18 15:57 98.1 F 20 117/62 94 01/26/19 12:00 98.7 F 20 103/65 99 Intake and Output 04/07/18 04/08/18 04/08/18 21:59 05:59 13:59 Intake Total 480 560 Output Total 1425 576 150 Balance -945 -16 -150 Intake: Oral 480 560 Output: Void Amount 1425 575 150 # of times incontinent of urine 0 1 Other: Meal Lunch Percent of Meal Consumed 50% Urine Appearance Clear Clear Clear Urine Color Bright Yellow Pale Bright Yellow Urine Odor Normal # Voids 2 Weight 104.78 kg Medical - DS: Data Labs on day of discharge: Labs from last 24 hours 04/08/18 04:15 PT 24.4 H INR 2.2 H Preliminary micro results at discharge 04/06/18 09:21 Blood Culture - Preliminary Blood 04/06/18 09:13 Blood Culture - Preliminary Blood Medical - DS: A/P - Patient/Caregiver Discharge Instructions Activity: as per physical therapy Diet: Dysphagia Pureed - Follow up Plan Follow up with: Faustino Khoury MD [Primary Care Provider] - Disposition: Xfer Other Prognosis: Fair Rehab Potential: Fair Overall status at discharge: patient is back to baseline Medical - DS: Qual - VTE Deep Vein Thrombosis/Pulmonary Embolism Present on Admission: No
[2018-04-08] MEDS ORDERED: WARFARIN 7.5 MG TABLET PO ONE (14:00)
[2018-04-08] MEDS: DIVALPROEX SODIUM 250 MG TAB.ER.24H PO SCH (16:58)
[2018-04-08] MEDS: OLANZapine 5 MG TABLET PO SCH (16:59)
[2018-04-08] MEDS: SIMVASTATIN 20 MG TABLET PO SCH (20:33)
[2018-04-09] MEDS: HYDROcodone/APAP 5/325MG TABLET PO PRN (02:02)
[2018-04-09] MEDS: 0.9 % SODIUM CHLORIDE 10 ML SYRINGE IV SCH (05:06)
[2018-04-09] MEDS: INSULIN LISPRO 1 UNIT/0.01 ML UNIT SQ SCH ×2 (07:14→11:09)
[2018-04-09] MEDS: LEVOTHYROXINE 100 MCG TABLET PO SCH (07:17)
--- NOTE | 2018-04-09 08:57 | Internal Med Progress Note ---
Medical - PN: Subj Patient information: Note initiated : 04/09/18 at 8:55 am Service Date, if different from initiated Date: [] Patient: Bryce Yip a 62 y/o M admitted on 04/06/18 for Fever. Chief Complaint: [] Interval history: Mr. Yip is a 62 year old M presented to ED for weakness decreased oral intake past couple weeks some confusion. History is obtained from charts and licensed pharmacist as patient given underlying developmental delay in acute on chronic confusion is unable to provide history. Sounds like patient who sleeps in his chair and was found to have a bowel movement in his chair by the licensed pharmacist this morning the patient was getting up out of his chair for the licensed pharmacist to clean him up when patient fell to the ground the licensed pharmacist called 911. Also reports of visual hallucination which she has had in the past just seems to be a little worse lately. A licensed pharmacist says he has had eating or drinking very much lately. He was seen at in the ER [facility] and private primary care provider for a inguinal hernia and he supposed to follow-up with surgery. No reported fevers. In the ED he was found to have a low normal blood pressures with an elevated lactate and concern for UTI thus was started on antibiotics IV fluids and admitted. Per the licensed pharmacist patient has a limited conversation ability, he is on at this stage of diet for swallowing precautions but patient does not adhere to it, he is also supposed to be on 2 L of oxygen at night but does not abide by that as well. 04/07 No overnight events. This rested well last night per staff. Does become agitated at times however. No new complaints 04/08 No overnight events. Gets little anxious when the licensed pharmacist leaves at night per nursing. 04/09 Not very motivated to move around. No complaints. No overnight events. Review of Systems: denies headache/fever/chills/nausea/vomiting/chest or abdominal pain/cough/dyspnea/diarrhea. Otherwise see above. - Constitutional Vitals: Vital Signs Temp Pulse Resp BP Pulse Ox 98.7 F 66 16 94/57 94 04/09/18 06:40 04/09/18 03:35 04/09/18 06:40 04/09/18 06:40 04/09/18 06:40 Period Temp Pulse Resp BP Sys/Minaya Pulse Ox Last 24 Hr 97.5 F-98.7 F 60-74 16-24 92-135/57-70 93-99 Intake and Output 04/08/18 04/09/18 04/09/18 21:59 05:59 13:59 Intake Total 720 720 240 Output Total 1052 1075 175 Balance -332 -355 65 Weight 102.512 kg Intake & Output: Intake & Output 04/08/18 04/09/18 04/09/18 21:59 05:59 13:59 Intake Total 720 720 240 Output Total 1052 1075 175 Balance -332 -355 65 Weight 102.512 kg Intake: Oral 720 720 240 Output: Urine Catheter Amount 400 Void Amount 1050 675 175 # of times incontinent of urine 2 Other: Meal Breakfast Percent of Meal Consumed 50% Feeding Ability Assist with Tray Set Up Urine Appearance Clear Clear Clear Urine Color Pale Bright Yellow Bright Yellow # Voids 1 Exam: General: Alert, Awake, No acute Distress, obese Eyes/N/T: EOMI, Head/Neck: neck supple, CV: RRR, 2/6 SM Pulm: Clear b/l, no wheezing/rhonchi/rales Abd: soft, nontender, +BS x4 Ext: no clubbing/cyanosis, trace b/l LE edema Neuro: Alert, moves all extremities, Skin: warm/dry Medical - PN: Obj Da - Labs CBC & Chem 7: 04/07/18 04:10 04/07/18 04:10 Labs: Abnormal Lab Results 04/09/18 04/08/18 04/07/18 04:20 04:15 07:23 RBC Hgb Hct MCV RDW Lymph % (Auto) Lymph # (Auto) Seg Neutrophils % Lymphocytes % RBC Morphology Polychromasia Macrocytosis PT 26.3 H 24.4 H 23.1 H INR 2.5 H 2.2 H 2.1 H Carbon Dioxide Glucose Phosphorus Albumin Globulin Albumin/Globulin Ratio Triglycerides 04/07/18 04/07/18 04/06/18 04:10 04:10 14:29 RBC 3.44 L Hgb 11.7 L Hct 35.5 L MCV 103.0 H RDW 15.1 H Lymph % (Auto) 12.5 L Lymph # (Auto) 1.2 L Seg Neutrophils % Lymphocytes % RBC Morphology Polychromasia Macrocytosis PT 21.7 H INR 1.9 H Carbon Dioxide 21 L Glucose 140 H Phosphorus 2.0 L Albumin 3.0 L Globulin 4.2 H Albumin/Globulin Ratio 0.7 L Triglycerides 223 H 04/06/18 07:24 RBC Hgb Hct MCV RDW Lymph % (Auto) Lymph # (Auto) Seg Neutrophils % 82 H Lymphocytes % 8 L RBC Morphology Abnorm A Polychromasia 1+ A Macrocytosis 1+ A PT INR Carbon Dioxide Glucose Phosphorus Albumin Globulin Albumin/Globulin Ratio Triglycerides Meds: Medications Acetaminophen (Tylenol) 650 mg PO Q6HP PRN PRN Reason: PAIN/FEVER > 101 Hydrocodone Bitart/Acetaminophen (Paige 5/325mg) 1 tab PO Q4HP PRN PRN Reason: PAIN LEVEL 3-6 Last Admin: 04/09/18 02:02 Dose: 1 tab Documented by: Albuterol Sulfate (Ventolin) 2 puff INH Q4-6HP PRN PRN Reason: shortness of breath Albuterol/Ipratropium (Combivent) 1 puff INH QID [facility] Last Admin: 04/08/18 20:33 Dose: Not Given Documented by: Benztropine Mesylate (Cogentin) 0.5 mg PO BID [facility] Last Admin: 04/08/18 20:32 Dose: 0.5 mg Documented by: Carbidopa/Levodopa (Sinemet 25/100) 2 tab PO TID@0800,1200,1700 [facility] Last Admin: 04/08/18 16:58 Dose: 2 tab Documented by: Ceftriaxone Sodium (Rocephin) 1 gm IV Q24H [facility] Last Admin: 04/08/18 08:23 Dose: 1 gm Documented by: Clonazepam (Klonopin) 0.5 mg PO BID@0800,2000 [facility] Last Admin: 04/08/18 20:32 Dose: 0.5 mg Documented by: Dextrose (Dextrose 50%) 0 ml IV UD PRN PRN Reason: Hypoglycemia Diagnostic Test (Pha) (Accu-Chek) 1 each FS ACHS [facility] Last Admin: 04/09/18 07:14 Dose: 1 each Documented by: Divalproex Sodium (Depakote Er) 1,000 mg PO DAILY@1600 [facility] Last Admin: 04/08/18 16:58 Dose: 1,000 mg Documented by: Docusate Sodium (Colace) 100 mg PO BID [facility] Last Admin: 04/08/18 20:33 Dose: 100 mg Documented by: Famotidine (Pepcid) 20 mg PO BID [facility] Last Admin: 04/08/18 20:32 Dose: 20 mg Documented by: Finasteride (Proscar) 5 mg PO QDAY [facility] Last Admin: 04/08/18 07:34 Dose: 5 mg Documented by: Furosemide (Lasix) 20 mg PO DAILY [facility] Last Admin: 04/08/18 07:34 Dose: 20 mg Documented by: Glucose (Insta-Glucose) 15 gm PO PRN PRN PRN Reason: Hypoglycemia Insulin Human Lispro (Humalog) 0 unit SQ [facility]; Protocol Last Admin: 04/09/18 07:14 Dose: Not Given Documented by: [facility]othyroxine [facility]) [facility] Last Admin: 04/09/18 07:17 Dose: 100 mcg Documented by: Lisinopril (Zestril) 2.5 mg PO QDAY [facility] Last Admin: 04/08/18 07:33 Dose: 2.5 mg Documented by: Loperamide HCl (Imodium) 2 mg PO Q2-4HP PRN PRN Reason: Diarrhea Magnesium Hydroxide (Milk Of Magnesia) 30 ml PO QDAY PRN PRN Reason: constipation and heartburn Metoprolol Tartrate (Lopressor) 12.5 mg PO BID@0800,1700 [facility] Last Admin: 04/08/18 17:03 Dose: 12.5 mg Documented by: Olanzapine (Zyprexa) 7.5 mg PO DAILY@1700 [facility] Last Admin: 04/08/18 16:59 Dose: 7.5 mg Documented by: Ondansetron HCl (Zofran) 4 mg IV Q6HP PRN PRN Reason: Nausea And Vomiting Budesonide/Formoterol Fumarate [Symbicort] 80-4.5 Mcg Inhaler 2 dose INH BID [facility] Last Admin: 04/08/18 20:34 Dose: Not Given Documented by: Potassium Chloride (Kdur) [facility] Last Admin: 04/08/18 07:34 Dose: 10 meq Documented by: Prochlorperazine (Compazine) 5 mg IV Q4HP PRN PRN Reason: Nausea And Vomiting Senna (Senokot) 1 tab PO DAILYP PRN PRN Reason: constipation Simvastatin (Zocor) 20 mg PO HS [facility] Last Admin: 04/08/18 20:33 Dose: 20 mg Documented by: Sodium Chloride (Saline Flush) 10 ml IV Q8 [facility] Last Admin: 04/09/18 05:06 Dose: 10 ml Documented by: Topiramate (Topamax) 75 mg PO BID@0800,1700 [facility] Last Admin: 04/08/18 17:02 Dose: 75 mg Documented by: Venlafaxine HCl (Effexor Xr) 150 mg PO QDAY [facility] Last Admin: 04/08/18 07:33 Dose: 150 mg Documented by: Warfarin Sodium (Coumadin Per Pharmacy) 1 order PO UD [facility] Medical - PN: A/P - Time Spent With Patient Total time spent is greater than 50% in coordination of care (as documented) at patient's floor/unit and/or counseling patient: - Narrative A/P Narrative: A: *AMS, visual hallucinations, acute on chronic: improved. become anxious when licensed pharmacist leaves for the evening -started improving in ED after IVF's *Volume depletion: improved *TONY on CKD III: improved *Generalized weakness/deconditioning/debility: *Schizophrenia: *Developmental Delay: *Depression/Anxiety: *Parkinson's *CAD/CABG *AVR: on warfarin *COPD(supposed to be on 2L@night but patient noncompliant): *DM *HTN *Hypothyroid: tsh wnl *GERD P: -supp O2 at night. -cont parkinson's meds -cont cardiac meds -ST eval -pt/ot -CM for placement, awaiting placement -ppx: warfarin per pharm/pepcid Medical - PN: Qual - VTE Deep Vein Thrombosis/Pulmonary Embolism Present on Admission: No
[2018-04-09] MEDS: FAMOTIDINE 20 MG TABLET PO SCH (09:03)
[2018-04-09] MEDS: CARBIDOPA/LEVODOPA 25/100 TABLET PO SCH ×2 (09:03→12:19)
[2018-04-09] MEDS: BENZTROPINE 1 MG TABLET PO SCH (09:03)
[2018-04-09] MEDS: FINASTERIDE 5 MG TABLET PO SCH (09:03)
[2018-04-09] MEDS: clonazePAM 0.5 MG TABLET PO SCH (09:03)
[2018-04-09] MEDS: cefTRIAXone 1 GM VIAL IV SCH (09:03)
[2018-04-09] MEDS: IPRATROPIUM/ALBUTEROL SULFATE 1 PUFF INHALER INH SCH (09:04)
[2018-04-09] MEDS: TOPIRAMATE 25 MG TABLET PO SCH (09:04)
[2018-04-09] MEDS: DOCUSATE SODIUM 100 MG CAPSULE PO SCH (09:04)
[2018-04-09] MEDS: POTASSIUM CHLORIDE 10 MEQ TABLET PO SCH (09:04)
[2018-04-09] MEDS: Budesonide/Formoterol Fumarate [Symbicort] 80-4.5 mcg Inhaler INH SCH (09:04)
[2018-04-09] MEDS: FUROSEMIDE 20 MG TABLET PO SCH (09:04)
[2018-04-09] MEDS: VENLAFAXINE 150 MG CAP.XL.24H PO SCH (09:04)
[2018-04-09] MEDS: LISINOPRIL 5 MG TABLET PO SCH (09:16)
[2018-04-09] MEDS: METOPROLOL TARTRATE 25 MG TABLET PO SCH (09:16)
[2018-04-09] MEDS ORDERED: WARFARIN 7.5 MG TABLET PO ONE (14:00)
== END 2018-04-09 13:55 | disposition other institution (70) | DRG 948 ==
LOC: ED 07:11 → MEDSUR 10:33
PROVIDERS: ADMIT Internal Medicine; ATTEND Internal Medicine